=== PATIENT | male | born 1995 | race Caucasian/White ===

== ENCOUNTER 2022-07-19 14:11 | Emergency (ER) | payer OTHER, SELFPAY ==
[2022-07-19 14:12] VITALS: BP 149/86; PULSE 81; RESP 20; TEMP 36.6; O2SAT 100; BMI 29.7
--- NOTE | 2022-07-19 14:20 | RAD_ITS ---
STUDY: X-RAY - LEFT FOOT CLINICAL: Male, 26 years old. Trauma TECHNIQUE: 3 view(s) of the foot. COMPARISON: None. FINDINGS: Normal talus, calcaneus, and tarsal bones. Normal visualized subtalar, talonavicular, calcaneocuboid, tarsal and tarsometatarsal articulations. Nondisplaced transverse fractures along the distal portion of the second and third metatarsals. Normal metatarsophalangeal joint of the great toe. Normal tibial and fibular sesamoid bones. Normal interphalangeal joint of the great toe. Normal phalanges of the great toe. Normal second through fifth metatarsophalangeal joints. Normal interphalangeal joints and phalanges of the lesser toes. Soft tissue swelling. RAD/Foot min 3 Views IMPRESSION: Nondisplaced transverse fracture of the distal portions of the second and third metatarsals with overlying soft tissue swelling. Electronically Signed: Baldomero Angel MD at 15:19 EDT ,
--- NOTE | 2022-07-19 14:20 | CT_ITS ---
STUDY: CT CERVICAL SPINE WITHOUT CONTRAST REASON FOR EXAM: Male, 26 years old. Trauma RADIATION DOSAGE (If Supplied By Facility): CTDIvol = ( 25.06 ) mGy, DLP = ( 612.75 ) mGycm TECHNIQUE: High resolution transaxial imaging was performed without contrast material. Sagittal and coronal images were reconstructed. Individualized dose optimization techniques were used for this CT. COMPARISON: None FINDINGS: Normal craniovertebral junction. Normal anterior atlantoaxial articulation. Normal odontoid process. Normal cervical lordosis. Normal vertebral bodies and posterior osseous elements. C2-3: Normal endplates. Normal disc height and morphology. Normal central canal and intervertebral neuroforamina. C3-4: Normal endplates. Normal disc height and morphology. Normal central canal and intervertebral neuroforamina. C4-5: Normal endplates. Normal disc height and morphology. Normal central canal and intervertebral neuroforamina. C5-6: Normal endplates. Normal disc height and morphology. Normal central canal and intervertebral neuroforamina. C6-7: Normal endplates. Normal disc height and morphology. Normal central canal and intervertebral neuroforamina. C7-T1: Normal endplates. Normal disc height and morphology. Normal central canal and intervertebral neuroforamina. Normal visualized soft tissue structures. CT/Spine Cervical without Contras IMPRESSION: Normal unenhanced CT examination of the cervical spine. Electronically Signed: Baldomero Angel MD at 15:16 EDT ,
--- NOTE | 2022-07-19 14:20 | CT_ITS ---
STUDY: CT CHEST, ABDOMEN T PELVIS WITH CONTRAST REASON FOR EXAM: Male, 26 years old. Back pain following a 20'' fall. RADIATION DOSAGE (If Supplied By Facility): CTDIvol = ( 23.63 ) mGy, DLP = ( 2638.98 ) mGycm TECHNIQUE: Transaxial imaging was performed following intravenous administration of IV 100mL [id number]-300. Individualized dose optimization techniques were used for this CT. COMPARISON: No relevant priors. FINDINGS: CHEST The lungs are normal. There is no demonstrated pleural abnormality. Normal heart and pericardium. Normal mediastinum. Normal hilar regions. Normal unenhanced pulmonary arteries. Normal aorta arch and descending thoracic aorta. Normal osseous structures. There is no demonstrated abnormality of the visualized upper abdomen. ABDOMEN The visualized lung bases are unremarkable. The visualized portions of the heart are within normal limits. Normal liver. Normal gallbladder and extrahepatic biliary system. Normal spleen. Normal pancreas. Normal bilateral adrenal glands. Normal right kidney. Normal left kidney. Normal visualized stomach. Normal small intestine. Normal colon. The appendix is visualized and appears normal. Normal abdominal aorta. Normal inferior vena cava. Normal retroperitoneum. Normal abdominal wall. Minimal loss of height of the superior endplate of the T12 and L1 vertebrae suggestive of compression fractures. Findings suggestive of possible avulsion fracture along the anterior superior aspect of the right and left acetabula. This is more prominent on the right side. PELVIS Normal urinary bladder. Normal visualized small intestine. Normal visualized colon. There is no pelvic fluid. There is no pelvic lymphadenopathy or mass lesion. Normal visualized pelvic arteries. CT/CT Chest, Abd, Pel w/Contrast IMPRESSION: Findings suggestive of the mild degree of compression fracture of the superior endplates of the T12 and L1 vertebrae as well as almost in fractures of the lateral anterior aspect of the acetabulum more prominent on the right side. Electronically Signed: Baldomero Angel MD at 15:15 EDT ,
--- NOTE | 2022-07-19 14:23 | RAD_ITS ---
STUDY: X-RAY - RIGHT FOOT CLINICAL: Male, 26 years old. Injury TECHNIQUE: 3 view(s) of the foot. COMPARISON: None. FINDINGS: Normal talus, calcaneus, and tarsal bones. Normal visualized subtalar, talonavicular, calcaneocuboid, tarsal and tarsometatarsal articulations. Avulsion fracture at the base of the fifth metatarsal. Normal metatarsophalangeal joint of the great toe. Normal tibial and fibular sesamoid bones. Normal interphalangeal joint of the great toe. Normal phalanges of the great toe. Normal second through fifth metatarsophalangeal joints. Normal interphalangeal joints and phalanges of the lesser toes. Soft tissue swelling. RAD/Foot min 3 Views IMPRESSION: Avulsion fracture at the base of the fifth metatarsal with overlying soft tissue swelling. Electronically Signed: Baldomero Angel MD at 15:17 EDT ,
--- NOTE | 2022-07-19 14:25 | EDS_ITS ---
HPI History of Present Illness Chief Complaint: Trauma Informant: patient and EMS Narrative Narrative: 26-year-old male presenting to the emergency department following a fall out of a tree. He states he was at least 20 feet up in the tree. He fell onto a standing position. He states he did not lock his knees. He notes pain in the bilateral feet/ankle as well as in the low back. He denies any head injury. EMS administered 100 mcg of fentanyl. He notes no loss of consciousness he denies any abdominal pain. He reports being able to feel his lower extremities. PFSH PFSH Medical History no medical history Allergy/AdvReac Type Severity Reaction Status Date / Time bee venom protein (honey bee) Allergy Anaphylaxis Verified 07/19/22 14:19 [bee sting] Family History no significant family his Surgical History no surgical history Social History (Updated 07/19/22 @ 14:[address] Trevin Baptiste, ) current gender identity: male Smoking Status: Current every day smoker tobacco type: cigarettes substance use type: does not use ROS ROS ED Constitutional Constitutional ED: Denies chills or weight loss Eyes Eyes: Denies change in vision or diplopia ENT ENT ED: Denies ear pain, rhinorrhea or sore throat Cardiovascular Cardiovascular: Denies chest pain, orthopnea, palpitations or racing heartbeat Respiratory/Chest Respiratory/Chest: Denies cough, dyspnea or orthopnea Gastrointestinal Gastrointestinal: Denies abdominal pain, diarrhea, nausea or vomiting Genitourinary Genitourinary ED: Denies dysuria, hematuria or urinary frequency Musculoskeletal Musculoskeletal: Reports back pain and other Details: Bilateral foot and ankle pain ; Denies arthralgias or myalgias Integumentary Denies abscess or rash Neurologic Neurologic: Denies headache(s) or weakness Psychiatric Psychiatric: Denies anxiety, depression, suicidal ideation or suicidal thoughts Endocrine Endocrinology: Denies polydipsia, polyphagia or polyuria Allergic/Immunologic Allergic/Immunologic ED: Denies mouth swelling, tongue swelling or urticaria EXAM Physical Exam Const Vital Signs: 07/19/22 14:12 07/19/22 14:51 Temperature 97.9 F Temperature Source Oral Pulse Rate 81 Respiratory Rate 20 H Respiratory Effort Normal Respiratory Depth Shallow Respiratory Pattern Normal Blood Pressure 149/86 H Blood Pressure Mean 107 Pulse Ox 100 100 Oxygen Delivery Method Room Air Room Air Positive well nourished and well developed General Appearance ED: well developed HEENT Reports normocephalic, head/scalp atraumatic and moist mucous membranes Eyes PERRL and EOMs intact bilaterally Neck no lymphadenopathy, supple and no JVD Neck Narrative: C-collar in place Resp normal respiratory effort and clear to auscultation bilaterally Cardio regular rate, regular rhythm and no murmurs GI normal to inspection, nondistended, normoactive bowel sounds and non-tender Palpation: soft Back/Spine no CVA tenderness Back/Spine Narrative: Patient has tenderness to palpation across the lower lumbar spine and paraspinal musculature.. There is bilateral swelling of each plantar surface and pain with palpation of the foot and ankle Extremity General Extremety ED: Negative for edema General Extremity: Negative for edema Neuro oriented x3, CN's II-XII intact bilaterally, no focal motor deficits and no sensory deficits noted Sensorium / Orientation: alert Motor Exam: strength 5/5 throughout Psych mental status grossly normal Mood & Affect: Negative for depressed or tearful Skin no rashes or lesions noted and no wounds MDM MDM MDM Narrative Medical decision making narrative: Patient was receiving Dilaudid for pain as well as IV fluids. CT of the cervical spine chest and abdomen pelvis demonstrated fractures of T12 and L1. Questionable fractures of his bilateral acetabulum's but he is not having pain in that area. There is also associated fractures of the bilateral feet involving the metatarsals. My impression of the plain films of the right foot and ankle is fifth metatarsal fracture and my impression of the plain films of the left foot is fractures of the third and fourth metatarsal. The patient was updated with the findings and we are transferring him to [facility] for trauma care. Lab Data Attestation: I reviewed the patient's lab results. Labs: Laboratory Results - last 24 hr 07/19/22 07/19/22 07/19/22 14:28 14:28 14:28 WBC 6.9 RBC 4.41 L Hgb 14.4 Hct 38.6 L MCV 87.5 MCH 32.7 H MCHC 37.3 H RDW Std Deviation 37.7 RDW Coeff of Dina 11.8 Plt Count 183 MPV 11.1 Immature Gran % (Auto) 3.600 H Neut % (Auto) 61.4 Lymph % (Auto) 28.0 Latimer % (Auto) 6.1 Eos % (Auto) 0.3 Baso % (Auto) 0.6 Absolute Neuts (auto) 4.3 Absolute Lymphs (auto) 1.94 Nucleated RBC % 0 PT 13.5 INR 1.1 APTT 27.6 Sodium 140 Potassium 3.4 L Chloride 109 H Carbon Dioxide 22.0 Anion Gap 9 BUN 14 Creatinine 1.16 Estim Creat Clear Calc 119.52 Est GFR (MDRD) Af Amer 98 Est GFR (MDRD) Non-Af 81 BUN/Creatinine Ratio 12.1 Glucose 118 H Calcium 9.1 Total Bilirubin 0.90 AST 29 ALT 35 Alkaline Phosphatase 63 Total Protein 6.9 Albumin 3.9 Globulin 3.0 Albumin/Globulin Ratio 1.3 Lipase 86 Radiography Diagnostic Testing: Clinical Impression(s) from Imaging Studies Cervical Spine CT 07/19/22 14:20 IMPRESSION: Normal unenhanced CT examination of the cervical spine. Electronically Signed: Baldomero Angel MD at 15:16 EDT , Chest/Abdomen/Pelvis CT 07/19/22 14:20 IMPRESSION: Findings suggestive of the mild degree of compression fracture of the superior endplates of the T12 and L1 vertebrae as well as almost in fractures of the lateral anterior aspect of the acetabulum more prominent on the right side. Electronically Signed: Baldomero Angel MD at 15:15 EDT , Foot X-Ray 07/19/22 14:20 IMPRESSION: Nondisplaced transverse fracture of the distal portions of the second and third metatarsals with overlying soft tissue swelling. Electronically Signed: Baldomero Angel MD at 15:19 EDT , Foot X-Ray 07/19/22 14:23 IMPRESSION: Avulsion fracture at the base of the fifth metatarsal with overlying soft tissue swelling. Electronically Signed: Baldomero Angel MD at 15:17 EDT , Ankle X-Ray 07/19/22 14:43 IMPRESSION: Lateral soft tissue swelling with an avulsion fracture at the base of the fifth metatarsal. Electronically Signed: Baldomero Angel MD at 15:18 EDT , Discharge Plan Triage Chief Complaint: Trauma ED Provider: Trevin Baptiste Dx/Rx/DC Orders Clinical Impression: Closed nondisplaced fracture of fifth right metatarsal bone, Fracture of metatarsal of left foot, closed, Closed T12 fracture, Closed L1 vertebral fracture, Fall Primary Care Provider: Care Physician,No Primary Referrals: Care Physician,No Primary [Primary Care Provider] - Disposition Disposition: Acute Care Hospital Discharge Location: [facility]
[2022-07-19] MEDS: HYDROmorphone 1 MG/ML Syringe IV ×2 (14:27→15:40)
[2022-07-19] MEDS: 0.9% Normal Saline 1,000 ML 1000 ML IV (14:28)
[2022-07-19] MEDS: 0.9% Normal Saline 1,000 ML 150 ML IV (14:32)
--- NOTE | 2022-07-19 14:43 | RAD_ITS ---
STUDY: X-RAY - RIGHT ANKLE REASON FOR EXAM: Male, 26 years old. Injury TECHNIQUE: 3 view(s) of the ankle. COMPARISON: None. FINDINGS: Normal visualized distal tibia and fibula. Normal medial and lateral malleoli. Normal tibiotalar articulation and ankle mortise. Normal visualized talus and calcaneus. Avulsion fracture at the base of the fifth metatarsal. The visualized subtalar, talonavicular, calcaneocuboid and tarsal articulations are normal. Lateral soft tissue swelling. RAD/Ankle min 3 Views IMPRESSION: Lateral soft tissue swelling with an avulsion fracture at the base of the fifth metatarsal. Electronically Signed: Baldomero Angel MD at 15:18 EDT ,
[2022-07-19 14:46] LABS: Absolute Lymphocyte Count 1.94 X10^3/uL (0.83-4.51); Absolute Neutrophil Count 4.3 X10^3/uL (2.0-7.7); Basophil# 0.04 X10^3/uL; Basophil% 0.6 % (0-1); Eosinophil# 0.02 X10^3/uL; Eosinophils% 0.3 % (0-5); Hematocrit 38.6 % (40-54); Hemoglobin 14.4 g/dL (13.0-16.5); Lymphocyte # 1.94 X10^3/ul (0.83-4.51); Mean Corp Hgb Conc 37.3 g/dL (32-36); Mean Corpuscular Hgb 32.7 pg (27.0-32.0); Mean Corpuscular Volume 87.5 fL (80-94); Mean Platelet Vol. 11.1 fl (6.2-12.0); Monocyte# 0.42 X10^3/uL; Monocyte% 6.1 % (0-10); NRBC Flagged by Analyzer 0 % (0-5); Neutrophil # 4.27 X10^3/uL (2.7-7.7); Neutrophil % 61.4 % (47-70); Platelet Count 183 K/mm3 (150-450); RBC Distribution Width CV 11.8 % (11.6-14.6); RBC Distribution Width SD 37.7 fl (35.1-43.9); Red Blood Count 4.41 M/mm3 (4.6-6.2); White Blood Count 6.9 K/mm3 (4.4-11.0)
[2022-07-19 14:47] LABS: International Normalized Ratio 1.1; Prothrombin Time (Protime)PT. 13.5 SECONDS (11.7-14.9)
[2022-07-19 14:48] LABS: Partial Thromboplast Time 27.6 Seconds (24.1-36.2)
[2022-07-19 14:49] LABS: ALB/GLOB Ratio 1.3 RATIO (0.9-2.4); AST(SGOT) 29 U/L (15-37); Alanine Aminotransfer ALT/SGPT 35 U/L (16-61); Albumin, Serum 3.9 g/dL (3.2-5.0); Alkaline Phosphatase 63 U/L (45-117); Anion Gap 9 (5-15); BUN 14 mg/dL (7-18); BUN/Creat Ratio 12.1 RATIO (10-20); Calcium,Total 9.1 mg/dL (8.5-10.1); Chloride 109 mmol/L (98-107); Creatinine, Serum 1.16 mg/dL (0.70-1.30); EST Glomerular Filtration Rate 81 mL/min (>60); Est Glom Filt Rate - Afr Amer 98 mL/min (>60); Estimated Creatinine Clearance 119.52 ml/min; Glucose 118 mg/dL (74-106); Lipase 86 U/L (73-393); Potassium 3.4 mmol/L (3.5-5.1); Protein, Total 6.9 g/dL (6.4-8.2); Sodium Level 140 mmol/L (136-145)
[2022-07-19 14:51] VITALS: O2SAT 100
[2022-07-19 15:00] VITALS: BP 148/72; PULSE 78; O2SAT 99
--- NOTE | 2022-07-19 15:50 | NURSING ---
CALLED [facility], ETA IS 1 HR
[2022-07-19 16:00] VITALS: BP 152/81; PULSE 76; RESP 15; O2SAT 100
[2022-07-19 16:48] VITALS: BP 151/74; PULSE 73; RESP 16; O2SAT 98
== END 2022-07-19 16:51 | disposition short-term general hospital (02) ==
PROVIDERS: Emergency Provider Emergency Medicine; Visit Provider Emergency Medicine
DX: S22.089A Unspecified fracture of T11-T12 vertebra, initial encounter for closed fracture (principal); S32.019A Unspecified fracture of first lumbar vertebra, initial encounter for closed fracture; S92.354A Nondisplaced fracture of fifth metatarsal bone, right foot, initial encounter for closed fracture; S92.325A Nondisplaced fracture of second metatarsal bone, left foot, initial encounter for closed fracture; S92.335A Nondisplaced fracture of third metatarsal bone, left foot, initial encounter for closed fracture; W14.XXXA Fall from tree, initial encounter; F17.210 Nicotine dependence, cigarettes, uncomplicated
CPT/HCPCS: 71260; 72125; 73610; 73630; 74177; 80053; 83690; 85025; 85610; 85730; 96361; 96374; 96376; 99285; Q9967; A4216